=== PATIENT | female | born 1985 ===

== ENCOUNTER 2022-01-15 08:15 | Inpatient (IN) | payer BC ==
[2022-01-15] MEDS: LACTATED RINGERS SOLUTION 1,000 ML/1,000 ML INFUS.BAG IV SCH ×2 (08:30→12:00)
[2022-01-15 09:41] VITALS: BMI 29.0
[2022-01-15 09:51] LABS: BASO % 0.6 % (0-2.0); EOS % 0.3 % (0-4.5); HEMATOCRIT 29.5 % (32.4-45.2); HEMOGLOBIN 9.7 GM/dL (10.7-15.3); LYMPH % 33.8 % (8-40); MCH 25.4 pg (25.7-33.7); MCHC 32.8 g/dl (32.0-36.0); MEAN CELL VOLUME 77.4 fl (80-96); MEAN PLT VOLUME 10.5 fl (7.5-11.1); NEUT % 58.3 % (42.8-82.8); PLATELET COUNT 105 10^3/uL (134-434); RBC 3.81 M/mm3 (3.60-5.2); RDW 17.4 % (11.6-15.6); WHITE BLOOD COUNT 5.2 K/mm3 (4.0-10.0)
[2022-01-15 09:58] LABS: INR 0.91 (0.83-1.09); PROTHROMBIN TIME (PATIENT) 10.4 SEC (9.7-13.0)
[2022-01-15 10:01] LABS: ACTIVATED PTT 27.3 SECONDS (25.2-36.5)
[2022-01-15] MEDS ORDERED: OXYTOCIN 30 UNITS in 0.9% NS 30 UNIT/500 ML INFUS.BAG IVPB ONE (10:08)
[2022-01-15 10:21] LABS: BLOOD UREA NITROGEN 9.7 mg/dL (7-18); CALCIUM 8.5 mg/dL (8.5-10.1)
[2022-01-15 10:25] LABS: CREATININE 0.5 mg/dL (0.55-1.3)
[2022-01-15] MEDS ORDERED: FENTANYL/BUPIVACAINE/NS/PF - PCEA - 50 ML DISP.SYRIN EP ONE ×2 (10:32→16:14)
[2022-01-15] MEDS ORDERED: OXYTOCIN 30 UNITS in 0.9% NS 30 UNIT/500 ML INFUS.BAG IVPB SCH (10:45)
[2022-01-15] MEDS: FENTANYL/BUPIVACAINE/NS/PF - PCEA - 50 ML DISP.SYRIN EP SCH ×2 (10:55→16:17)
[2022-01-15] MEDS ORDERED: NALOXONE HCL 0.4 MG/ML VIAL IVPUSH PRN (11:10)
[2022-01-15 12:12] LABS: HIV INTERPRETATION NEGATIVE (NEGATIVE)
[2022-01-15] MEDS ORDERED: OXYTOCIN 20 UNITS in 0.9% NS 20 UNIT/1,000 ML INFUS.BAG IV ONE (17:04)
[2022-01-15] MEDS ORDERED: ACETAMINOPHEN 325 MG TABLET (FP) PO PRN (17:44)
[2022-01-15] MEDS ORDERED: oxyCODONE HCL 5 MG TABLET PO PRN (17:44)
[2022-01-15] MEDS ORDERED: BENZOCAINE 20% 57 GM BOTTLE TP PRN (17:44)
[2022-01-15] MEDS ORDERED: WITCH HAZEL 50% (TUCKS) 40 PAD/JAR PAD TP PRN (17:44)
[2022-01-15] MEDS ORDERED: METHYLERGONOVINE MALEATE 0.2 MG/1 ML AMP IM PRN (17:44)
[2022-01-15] MEDS ORDERED: BENZOCAINE 28 GM HEMORRHOIDAL OINTMENT TP PRN (17:44)
[2022-01-15] MEDS ORDERED: BISACODYL 10 MG SUPP.RECT RC PRN (17:44)
[2022-01-15] MEDS ORDERED: OXYTOCIN 20 UNITS in 0.9% NS 20 UNIT/1,000 ML INFUS.BAG IV SCH (17:45)
[2022-01-15] MEDS: IBUPROFEN 600 MG TABLET (FP) PO PRN (22:52)
[2022-01-16] MEDS: IBUPROFEN 600 MG TABLET (FP) PO PRN ×2 (06:37→11:52)
[2022-01-16 09:05] LABS: BASO % 0.3 % (0-2.0); EOS % 0.4 % (0-4.5); HEMATOCRIT 27.2 % (32.4-45.2); LYMPH % 23.9 % (8-40); MCH 25.7 pg (25.7-33.7); MEAN CELL VOLUME 77.8 fl (80-96); MONO % 5.4 % (3.8-10.2); PLATELET COUNT 98 10^3/uL (134-434); RDW 17.9 % (11.6-15.6); WHITE BLOOD COUNT 8.1 K/mm3 (4.0-10.0)
[2022-01-16] MEDS: PRENATAL VITAMINS W/ FOLIC ACID TABLET (FP) PO SCH (09:12)
[2022-01-16] MEDS ORDERED: SENNOSIDES/DOCUSATE COMBO (SENNA PLUS) TABLET (UD) PO PRN (22:00)
[2022-01-17] MEDS: IBUPROFEN 600 MG TABLET (FP) PO PRN (06:04)
[2022-01-17 08:30] VITALS: BP 98/68; PULSE 88; RESP 18; TEMP 98
[2022-01-17] MEDS: PRENATAL VITAMINS W/ FOLIC ACID TABLET (FP) PO SCH (09:29)
== END 2022-01-17 12:00 | disposition home or self-care (01) | DRG 807 ==
LOC: JLDR 08:15 → J3W 20:22
PROVIDERS: ADMIT Obstetrics & Gynecology; ATTEND Obstetrics & Gynecology
PROC: 10E0XZZ Delivery of Products of Conception, External Approach (ICD-10-PCS; principal; 2022-01-15)
PROC: 0W8NXZZ Division of Female Perineum, External Approach (ICD-10-PCS; 2022-01-15)
PROC: 3E033VJ Introduction of Other Hormone into Peripheral Vein, Percutaneous Approach (ICD-10-PCS; 2022-01-15)
PROC: 10907ZC Drainage of Amniotic Fluid, Therapeutic from Products of Conception, Via Natural or Artificial Opening (ICD-10-PCS; 2022-01-15)
DX: O48.0 Post-term pregnancy (principal); Z37.0 Single live birth; O70.1 Second degree perineal laceration during delivery; O90.81 Anemia of the puerperium; D64.9 Anemia, unspecified; Z3A.40 40 weeks gestation of pregnancy
CPT/HCPCS: 36415; 59409; 80048; 85025; 85610; 85730; 86780; 86850; 86900; 86901; 87389; C9803-CS; U0003; U0005